=== PATIENT | female | born 1970 | race Caucasian/White ===

== ENCOUNTER 2024-03-26 22:39 | Emergency (ER) | payer OTHER, SELFPAY ==
[2024-03-26 23:05] VITALS: BP 160/100
[2024-03-26 23:18] LABS: Urine Albumin Negative (Neg - Trace); Urine Bilirubin Negative (Negative); Urine Character Clear (Clear); Urine Color Straw; Urine Glucose Negative (Negative); Urine Ketone Negative (Negative); Urine Leukocyte Trace (Negative); Urine Nitrite Negative (Negative); Urine Occult Blood Negative (Negative); Urine Urobilinogen Negative (Neg - 1+)
[2024-03-26 23:19] LABS: % Basophils 0.3 % (0-2); % Eosinophils 0.6 % (0-6); % Immature Granulocytes 0.5 % (0-0.5); % Lymphocytes 17.7 % (20.5-51.1); % Monocytes 6.5 % (1.7-9.3); % Neutrophils 74.4 % (42.2-75.2); Absolute Eosinophils 0.1 10^3/uL (0-0.7); Absolute Lymphocytes 1.5 10^3/uL (1.2-3.4); Absolute Monocytes 0.6 10^3/uL (0.1-0.6); Absolute Neutrophils 6.5 10^3/uL (1.4-6.5); Hematocrit 35.4 % (37.0-47.0); Hemoglobin 12.7 g/dL (12.0-16.0); Mean Corp Hgb Conc. 35.9 g/dL (33.0-37.0); Mean Corpuscular Hgb 30.8 pg (27.0-31.0); Mean Corpuscular Volume 85.9 fL (81.0-99.0); Mean Platelet Volume 10.4 fL (7.4-10.4); Nucleated Red Blood Cells % 0 %; Platelet Count 269 10^3/uL (130-400); Red Blood Cell Count 4.12 10^6/uL (4.20-5.40); Red Cell Dist. Width 12.5 % (11.5-14.5); White Blood Cell Count 8.7 10^3/uL (4.8-10.8)
[2024-03-26 23:31] LABS: Urine Red Blood Cell None Seen /HPF (0-2); Urine Squamous Cell 0-2 /LPF (Few); Urine White Cell 0-2 /HPF (0-5)
[2024-03-26 23:35] VITALS: BMI 27.1
[2024-03-26 23:39] VITALS: BP 145/92
[2024-03-26 23:43] LABS: ALT (SGPT) 20 U/L (0-35); AST (SGOT) 23 U/L (14-36); Albumin 4.6 g/dl (3.5-5.0); Alkaline Phosphatase 76 U/L (38-126); Blood Urea Nitrogen 14 mg/dl (7-17); Calcium 9.9 mg/dl (8.4-10.2); Carbon Dioxide 23 mmol/L (22-30); Chloride 105 mmol/L (98-107); Estimated Creatinine Clearance 82 ml/min; Glucose 113 mg/dl (70-99); Potassium 3.7 mmol/L (3.5-5.1); Sodium 142 mmol/L (135-145); Total Bilirubin 0.4 mg/dl (0.2-1.3); Total Protein 7.3 g/dl (6.3-8.2); eGFR > 60.00
[2024-03-27] VITALS: BP 162/97
--- NOTE | 2024-03-27 00:12 | ED.GENMED ---
History of Present Illness
General
Chief Complaint: Breathing Problem
Source: patient
Exam Limitations: none
Time Seen by Provider: 03/26/24 23:46
Nursing documentation reviewed up to this point in time: agreed with
History of Present Illness
History of Present Illness:
53-year-old female feels stressed hyperventilating short of breath getting a deep breath, some episodes of child similar episode with the onset of the COVID pandemic symptoms started few weeks ago coinciding with her special needs child being mated
to [employer] with numerous surgeries, she is not sleeping well, saw her PCP given some Ativan which helped also sounds like an SSRI which may not have helped, no fever chills no calf pain no hemoptysis, she is very stressed in the room, was tearful at
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
Past History
Past History
ED Past Medical History: Other (Renal calculus, UTI, occular migraine)
ED Past Surgical History: None
Social History
Tobacco: Former smoker
Alcohol: None
Drug: None
Personal:
Living: with family
Employment: Other
Family History
Family History: Hypertension and CAD; Negative Early CAD
Phy Exam
Physical Exam
Physical Exam:
Physical Exam
General: Anxious cooperative female
Neck: No jaundice no obvious
Heart: s1/s2 regular rate and rhythm, no murmur. equal radial pulses.
Lungs: no acute respiratory distress. clear bilaterally
Abdomen: Not tender
Neuro: alert and oriented. no focal neurological deficits
Skin: no rash
Psychiatric: Anxious cooperative interactive not hallucinating
Extremities: no edema. no calf tenderness.
Scores
Heart Failure Risk
Heart Failure Risk Score: Not Applicable
Course
Orders/Labs/Results
Orders:
Orders
03/26/24 22:54
ECG [Electrocardiogram (*1)] Urgent
Reason for Study: Shortness of Breath
Cardiology Consult: Unknown
EKG- Treatment ONCE
03/26/24 23:10
Complete Blood Count/With Diff Urgent
Comprehensive Metabolic Panel Urgent
Urinalysis Reflex To Culture Urgent
Date Specimen was Collected: 03/26/24
Time Specimen was Collected: 23:07
Urine Microscopic Reflex Cult Urgent
03/27/24 00:07
Lorazepam [Ativan] 1 mg PO NOW STA
CR Chest - 2 Views Urgent
Comment:
Reason For Exam: sob
03/27/24 00:13
Crisis Consult Routine
Reason for Consult: anxiety, outpt resources
03/27/24 00:17
Troponin I Urgent
Abnormal Lab Results
03/26/24
23:10
RBC 4.12 L 10^6/uL
(4.20-5.40)
Hct 35.4 L %
(37.0-47.0)
Lymphocytes % 17.7 L %
(20.5-51.1)
Glucose 113 H mg/dl
(70-99)
Leukocyte Esterase Rfl Trace A
(Negative)
03/26/24 23:10
03/26/24 23:10
Vital Signs
Initial and Last Documented VS:
Initial Vital Signs
Temp Pulse Resp Pulse Ox
98.3 F 85 26 100
03/26/24 22:43 03/26/24 22:43 03/26/24 22:43 03/26/24 22:43
Last Documented Vital Signs
Temp Pulse Resp BP Pulse Ox
98.3 F 75 19 162/97 98
03/26/24 22:43 03/27/24 00:00 03/27/24 00:00 03/27/24 00:00 03/27/24 00:00
MDM/Problems Addressed
Differential Diagnosis Includes:
Anxiety, grief, l doubt ACS or pneumothorax low clinical suspicion for PE
MDM/Problems Addressed:
Shortness of breath panic,
*Radiology
Radiology exam reviewed: preliminary read by ED provider
*Pulse Oximetry
Patient hypoxic: no
*EKG
Interpreted by ED Provider?: Yes
Interpretation: normal
Comparison EKG: no comparison EKG present
Heart Rate: 78
Rate: normal
Rhythm: sinus
QRS Pattern: normal QRS
Ischemia: no ischemia
*Motor Vehicles Supervisor Interpretation
Rate: normal
Interpretation: normal
Heart Rate: 78
Rhythm: sinus
*Critical Care Note
Total Time (30-74mins, 75-104mins- exclusive of procedures): Not Applicable
Update Note
Update Note:
Suspect panic disorder, will ask crisis to see her, refill her Ativan, encourage PCP follow-up, check troponin and chest x-ray for completeness sake
135 troponin chest x-ray noted patient feeling better
ED Attending Note
-
Portions of this chart may have been created with voice recognition software.� Occasional wrong word or��sound alike� substitutions may have occurred due to the inherent limitations of voice recognition software.
Discharge Plan
Departure
Patient Disposition: Home (Routine Discharge)
Date of Disposition: 03/27/24
Time of Disposition: 01:36
Patient with high blood pressure during this ER visit?: No
Condition: Good
Discharge Problem:
Anxiety
Instructions: Shortness of Breath (Dyspnea) (DC), Anxiety, Adult ED
Prescriptions:
New
lorazepam [Ativan] 1 mg tablet
1 mg PO BID PRN (Reason: anxiety) Qty: 14 0RF
lorazepam [Ativan] 0.5 mg tablet
0.5 mg PO HS PRN (Reason: anxiety) Qty: 20 0RF
No Action
oxycodone 5 mg tablet
5 mg PO TID PRN (Reason: Pain) Qty: 10 0RF
Referrals:
Bubba Shields, [Family Provider] - Next open appointment
Interventions
Interventions:
*Risk Screen - Suicide Last Done: 03/26/24 22:43
*General Assessment Last Done: 03/26/24 22:43
*Neglect/Abuse Screening Last Done: 03/26/24 22:43
ED- Fall Risk Assessment Last Done: 03/26/24 22:43
*ED COVID-19 Vaccine History Last Done: 03/26/24 22:43
ED- Cardiac Assessment Last Done: 03/26/24 23:35
ED- Pulmonary Assessment Last Done: 03/26/24 23:35
Discharge Date and Time
Print Language: FAROESE
[2024-03-27] MEDS: ATIVAN 1 MG PO (00:19)
[2024-03-27 00:57] LABS: Troponin I < 0.012 ng/ml
== END 2024-03-27 01:52 | disposition home or self-care (01) ==
LOC: EMR 22:39
PROVIDERS: Emergency Medicine; EMERGENCY PHYSICIAN Emergency Medicine; FAMILY PHYSICIAN Family Medicine
DX: F41.9 Anxiety disorder, unspecified (principal); Z82.49 Family history of ischemic heart disease and other diseases of the circulatory system; Z87.440 Personal history of urinary (tract) infections; Z87.442 Personal history of urinary calculi; Z87.891 Personal history of nicotine dependence
CPT/HCPCS: 99283; 71046; 80053; 81003; 81015; 84484; 85025; 93005

== ENCOUNTER 2024-05-20 12:03 | Emergency (ER) | payer OTHER, SELFPAY ==
[2024-05-20 12:07] VITALS: BP 175/98
[2024-05-20 12:43] LABS: % Basophils 0.4 % (0-2); % Eosinophils 0.3 % (0-6); % Immature Granulocytes 0.2 % (0-0.5); % Lymphocytes 12.5 % (20.5-51.1); % Monocytes 5.3 % (1.7-9.3); % Neutrophils 81.3 % (42.2-75.2); Absolute Lymphocytes 1.1 10^3/uL (1.2-3.4); Absolute Monocytes 0.5 10^3/uL (0.1-0.6); Absolute Neutrophils 7.2 10^3/uL (1.4-6.5); Hematocrit 38.9 % (37.0-47.0); Hemoglobin 13.3 g/dL (12.0-16.0); Mean Corp Hgb Conc. 34.2 g/dL (33.0-37.0); Mean Corpuscular Hgb 29.6 pg (27.0-31.0); Mean Corpuscular Volume 86.4 fL (81.0-99.0); Mean Platelet Volume 10.4 fL (7.4-10.4); Nucleated Red Blood Cells % 0 %; Platelet Count 295 10^3/uL (130-400); Red Cell Dist. Width 12.5 % (11.5-14.5); White Blood Cell Count 8.9 10^3/uL (4.8-10.8)
[2024-05-20 12:52] LABS: ALT (SGPT) 16 U/L (0-35); AST (SGOT) 20 U/L (14-36); Albumin 4.5 g/dl (3.5-5.0); Alkaline Phosphatase 78 U/L (38-126); Blood Urea Nitrogen 14 mg/dl (7-17); Calcium 9.6 mg/dl (8.4-10.2); Carbon Dioxide 25 mmol/L (22-30); Chloride 103 mmol/L (98-107); Glucose 134 mg/dl (70-99); Potassium 4.5 mmol/L (3.5-5.1); Sodium 137 mmol/L (135-145); Total Bilirubin 0.5 mg/dl (0.2-1.3); Total Protein 7.3 g/dl (6.3-8.2); eGFR > 60.00
[2024-05-20 13:03] LABS: Troponin I < 0.012 ng/ml
--- NOTE | 2024-05-20 16:08 | ED.GENMED ---
History of Present Illness
General
Chief Complaint: Breathing Problem
Source: patient
Exam Limitations: none
Time Seen by Provider: 05/20/24 15:57
Nursing documentation reviewed up to this point in time: agreed with
History of Present Illness
History of Present Illness:
Patient to ED with complaint of chest pain and tightness. Symptoms started approx 2 weeks ago. Today reports worsening paiin with deep breathing. Pain does not radiate. No alleviating factors. Denies n/v/diaphoresis. Brought to ED by spouse for
eval.
Past History
Past History
ED Past Medical History: Other (Renal calculus, UTI, occular migraine)
ED Past Surgical History: None
Social History
Tobacco: Former smoker
Alcohol: None
Drug: None
Personal:
Living: with family
Employment: Other
Family History
Family History: Hypertension and CAD; Negative Early CAD
Review of Systems
Review of Systems
Allergies reviewed?: Yes
All Other Systems: ROS reviewed and negative except as documented in HPI and ROS
Constitutional: Reports no symptoms
EENT: Reports no symptoms
Respiratory: Reports cough and trouble breathing
Cardiac: Reports chest pain
ABD/GI: Reports no symptoms
: Reports no symptoms
Musculoskeletal: Reports no symptoms
Skin: Reports no symptoms
Neurological: Reports no symptoms
Psychiatric: Reports no symptoms
Phy Exam
General Physical Exam
General Presentation: well appearing and mild distress
General age: appears stated age
General Skin: warm and dry
General Habitus: normal
General Mental: alert
Cardiovascular Exam
Cardiovascular Exam: regular rate/rhythm and no edema
Pulmonary Exam
Pulmonary Exam: lungs clear and no respiratory distress
Gastrointestinal Exam
Gastrointestinal Exam: non tender and soft
Musculoskeletal Exam
Musculoskeletal Exam: full ROM and neuro vasc intact
Skin Exam
Skin Exam: normal color, warm/dry and no rash
Psychiatric Exam
Psychiatric Exam: anxious
Scores
Heart Failure Risk
Heart Failure Risk Score: Not Applicable
Course
Orders/Labs/Results
Orders:
Orders
05/20/24 12:04
EKG [Electrocardiogram (*1)] Urgent
Reason for Study: Chest Pain
EKG- Treatment ONCE
05/20/24 12:23
Complete Blood Count/With Diff Urgent
Comprehensive Metabolic Panel Urgent
Troponin I Urgent
05/20/24 16:07
CR Chest - 2 Views Urgent
Comment:
Reason For Exam: chest pain, SOB
05/20/24 16:11
D-Dimer Urgent
Troponin I Urgent
05/20/24 16:34
Acetaminophen [Tylenol] 1,000 mg PO NOW STA
05/20/24 16:55
Pantoprazole [Protonix] 40 mg PO NOW STA
Abnormal Lab Results
05/20/24
12:23
Absolute Neuts (auto) 7.2 H 10^3/uL
(1.4-6.5)
Absolute Lymphs (auto) 1.1 L 10^3/uL
(1.2-3.4)
Neutrophils % 81.3 H %
(42.2-75.2)
Lymphocytes % 12.5 L %
(20.5-51.1)
Glucose 134 H mg/dl
(70-99)
05/20/24 12:23
05/20/24 12:23
Vital Signs
Initial and Last Documented VS:
Initial Vital Signs
Temp Pulse Resp BP Pulse Ox
98.2 F 87 16 175/98 98
05/20/24 12:07 05/20/24 12:07 05/20/24 12:07 05/20/24 12:07 05/20/24 12:07
Last Documented Vital Signs
Temp Pulse Resp BP Pulse Ox
98.2 F 71 13 144/98 97
05/20/24 12:07 05/20/24 16:45 05/20/24 16:45 05/20/24 16:09 05/20/24 16:45
*Radiology
Radiology exam reviewed: radiology read reviewed
*Pulse Oximetry
Patient hypoxic: no
*Critical Care Note
Total Time (30-74mins, 75-104mins- exclusive of procedures): Not Applicable
Update Note
Update Note:
Patient to ED wti complaint of chest tightness x 2 weeks. Reports sensation of lump in throat. Labs reviewed. Troponin neg x 2, DDimer normal. Doubtful for ACS. Possibly reflux induced? Will do trial of protonix She is discharged home and will
folllow up withPCP. Given number for cardiology at her request..
ED Attending Note
-
Portions of this chart may have been created with voice recognition software.� Occasional wrong word or��sound alike� substitutions may have occurred due to the inherent limitations of voice recognition software.
Discharge Plan
Departure
Patient Disposition: Home (Routine Discharge)
Date of Disposition: 05/20/24
Time of Disposition: 16:56
Patient with high blood pressure during this ER visit?: No
Condition: Good
Covid-19: Not Applicable
Discharge Problem:
Chest pain
Instructions: Acid reflux and GERD in adults, Chest Pain PCP Follow Up
Prescriptions:
New
pantoprazole [Protonix] 40 mg tablet,delayed release (DR/EC)
40 mg PO DAILY Qty: 14 0RF
No Action
oxycodone 5 mg tablet
5 mg PO TID PRN (Reason: Pain) Qty: 10 0RF
lorazepam [Ativan] 0.5 mg tablet
0.5 mg PO HS PRN (Reason: anxiety) Qty: 20 0RF
lorazepam [Ativan] 1 mg tablet
1 mg PO BID PRN (Reason: anxiety) Qty: 14 0RF
Referrals:
Willie Goodman MD [Active] -
Bubba Shields DO [Family Provider] - Tomorrow
Activity Restrictions/Additional Instructions:
Return to the emergency department immediately for any changes in/worsening of your symptoms.
Interventions
Interventions:
*Risk Screen - Suicide Last Done: 05/20/24 12:07
*General Assessment Last Done: 05/20/24 16:00
*Neglect/Abuse Screening Last Done: 05/20/24 12:07
ED- Fall Risk Assessment Last Done: 05/20/24 16:00
*ED COVID-19 Vaccine History Last Done: 05/20/24 16:00
ED- Cardiac Assessment Last Done: 05/20/24 16:00
ED- Pulmonary Assessment Last Done: 05/20/24 16:00
Discharge Date and Time
Print Language: PALAUAN
[2024-05-20 16:09] VITALS: BP 144/98
[2024-05-20 16:10] VITALS: BMI 25.1
[2024-05-20 16:36] LABS: D-Dimer 0.28 ug/mlFEU (0.00-0.50)
[2024-05-20] MEDS: TYLENOL 1000 MG PO (16:36)
[2024-05-20 16:49] LABS: Troponin I < 0.012 ng/ml
[2024-05-20 17:00] VITALS: BP 132/85
[2024-05-20] MEDS: PROTONIX 40 MG PO (17:03)
== END 2024-05-20 17:24 | disposition home or self-care (01) ==
LOC: EMR 12:03
PROVIDERS: Emergency Medicine; Nurse Practitioner; EMERGENCY PHYSICIAN Emergency Medicine; FAMILY PHYSICIAN Family Medicine
DX: R07.89 Other chest pain (principal); Z82.49 Family history of ischemic heart disease and other diseases of the circulatory system; Z87.440 Personal history of urinary (tract) infections; Z87.442 Personal history of urinary calculi; Z87.891 Personal history of nicotine dependence
CPT/HCPCS: 99283; 80053; 84484; 85025; 85379; 93005

== ENCOUNTER 2025-01-14 18:39 | Emergency (ER) | payer OTHER, SELFPAY ==
[2025-01-14 18:48] VITALS: BP 177/95
[2025-01-14 19:06] LABS: Hematocrit 36.7 % (37.0-47.0); Hemoglobin 12.8 g/dL (12.0-16.0); Mean Corp Hgb Conc. 34.9 g/dL (33.0-37.0); Mean Corpuscular Volume 86.8 fL (81.0-99.0); Nucleated Red Blood Cells % 0 %; Platelet Count 297 10^3/uL (130-400); Red Cell Dist. Width 12.3 % (11.5-14.5)
[2025-01-14 19:07] LABS: Urine Character Clear (Clear)
[2025-01-14 19:27] LABS: ALT (SGPT) 15 U/L (0-35); AST (SGOT) 18 U/L (14-36); Albumin 4.7 g/dl (3.5-5.0); Alkaline Phosphatase 60 U/L (38-126); Blood Urea Nitrogen 14 mg/dl (7-17); Calcium 10.0 mg/dl (8.4-10.2); Carbon Dioxide 27 mmol/L (22-30); Chloride 104 mmol/L (98-107); Glucose 90 mg/dl (70-99); Potassium 3.9 mmol/L (3.5-5.1); Sodium 139 mmol/L (135-145); Total Protein 7.8 g/dl (6.3-8.2); eGFR > 60.00
--- NOTE | 2025-01-14 22:28 | ED.GENMED ---
History of Present Illness
General
Chief Complaint: Headache
Source: patient and spouse
Exam Limitations: none
Time Seen by Provider: 01/14/25 22:03
Nursing documentation reviewed up to this point in time: agreed with
History of Present Illness
History of Present Illness:
The patient is a 54-year-old female presenting with a headache and nausea persisting for five days. The headache feels similar to her typical migraines but has lasted longer. She denies fever but reports some frontal head pressure and mild eye
discomfort a few days ago. Her headache is primarily in the front of the head, involving both sides. There is no neck pain, though she usually experiences some neck discomfort on a regular, chronic basis. She complains of some urinary frequency
throughout the day today after increasing water intake today but denies urinary tract infection symptoms. She experienced nausea and two days of pronounced dizziness, rendering her unable to get out of bed. The dizziness worsens with head
movements. She denies ear ringing or buzzing and reports intermittent improvement and recurrence of symptoms, notably waking with nausea.
For headache relief, she uses acetaminophen and ibuprofen, with inconsistent efficacy. The patient has no history of specific migraine medications. 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
at a different ED and underwent unremarkable CT of the head. Headaches occur approximately once a week or more but varies in frequency. She admits that she has not followed up with PCP for frequent headaches nor previous neurology evaluation. She
is postmenopausal.
The headaches and nausea are attributed to migraines, potentially weather-related. Insufficient sleep may exacerbate symptoms, partly due to caregiving responsibilities for a special needs daughter.
She takes no medicines on a daily basis.
Past History
Past History
ED Past Medical History: Other (Renal calculus, UTI, occular migraine)
ED Past Surgical History: None
Social History
Tobacco: Former smoker
Alcohol: None
Drug: None
Personal:
Living: with family
Employment: Other
Family History
Family History: Hypertension and CAD; Negative Early CAD
Phy Exam
Physical Exam
Physical Exam:
General: 54-year-old woman appears her stated age, bright and alert, pleasant, appears in no acute distress. Accompanied by her .
Skin: Warm, dry. Normal color. No rash.
Head: Normocephalic, atraumatic.
Neck: Supple, nontender, no adenopathy nor meningismus, trachea midline.
Eye Ears, Nose, and Throat: Oral mucosa moist. TMs are clear bilaterally. Nares are patent with mildly boggy pale blue turbinates without rhinorrhea. Pupils are equal and reactive to light, extraocular muscles intact. Discs are sharp bilaterally.
Cardiovascular: Normal peripheral perfusion, no edema.
Respiratory: Respirations are non-labored.
Gastrointestinal: Abdomen nondistended.
Back: Normal range of motion, normal alignment.
Musculoskeletal: Normal range of motion, normal strength.
Neurological: Alert and oriented to person, place, time, and situation, no focal neurological deficit observed. Foss and steady gait.
Psychiatric: Cooperative, appropriate mood & affect.
Course
Orders/Labs/Results
Orders:
Orders
01/14/25 18:51
EKG [Electrocardiogram (*1)] Urgent
Reason for Study: Vertigo / Dizzy
EKG- Treatment ONCE
01/14/25 18:55
Urinalysis Reflex To Culture Urgent
Date Specimen was Collected: 01/14/25
Time Specimen was Collected: 18:51
01/14/25 18:59
Complete Blood Count/With Diff Urgent
Comprehensive Metabolic Panel Urgent
01/14/25 22:23
CT Head W/o Iv Contrast Urgent
Comment:
Reason For Exam: gen frontal h/a x 5 days
0.9% Sodium Chloride 1000 ml [Nss] 1,000 ml IV BOLUS
Diphenhydramine [Benadryl] 25 mg IV NOW STA
Prochlorperazine [Compazine] 10 mg IV NOW STA
01/14/25 23:53
Ketorolac [Toradol] 30 mg IV NOW STA
Abnormal Lab Results
01/14/25
18:59
Hct 36.7 L %
(37.0-47.0)
01/14/25 18:59
01/14/25 18:59
Vital Signs
Initial and Last Documented VS:
Initial Vital Signs
Temp Pulse Resp BP Pulse Ox
98.5 F 73 16 177/95 100
01/14/25 18:48 01/14/25 18:48 01/14/25 18:48 01/14/25 18:48 01/14/25 18:48
Last Documented Vital Signs
Temp Pulse Resp BP Pulse Ox
98.5 F 55 16 129/73 99
01/14/25 18:48 01/15/25 00:30 01/15/25 00:30 01/15/25 00:30 01/15/25 00:30
MDM/Problems Addressed
Differential Diagnosis Includes:
The Differential Diagnosis includes, in no particular order and is not limited to:
- Migraine
- Tension headache
- Sinusitis
- Meningitis
- Vestibular neuritis
- Dehydration-induced headache
- Upper respiratory infection
- Giant cell arteritis
- Temporal arteritis
- Intracranial hemorrhage
MDM/Problems Addressed:
- Acute: Persistent headache, nausea, dizziness.
- Thus far labs are unremarkable as is urinalysis.
- EKG is overall unremarkable and unchanged from previous May 2024.
PLAN:
- Conduct a computed tomography scan of the head to rule out other causes.
- Initiate IV fluids.
- Administer IV prochlorperazine for headache and nausea management.
- Administer IV diphenhydramine to counteract potential restlessness caused by prochlorperazine.
Chronic conditions affecting care:
History of migraine headaches, somewhat frequent occurring at least once a week.
Chronic conditions affecting care: Other (Migraine headaches)
*Radiology
Radiology exam reviewed: radiology read reviewed (CT of the head is unremarkable)
*Pulse Oximetry
SaO2: 100
Oxygen Mode of Delivery: Room air
Patient hypoxic: no
*EKG
Interpreted by ED Provider?: Yes
Interpretation: normal
Comparison EKG: no changes (Unchanged from previous May 2024)
Rate: normal
Rhythm: sinus
Watkins: normal axis
Interval: normal interval
QRS Pattern: normal QRS
Ischemia: non-specific ST changes
*Critical Care Note
Total Time (30-74mins, 75-104mins- exclusive of procedures): Not Applicable
Patient Management
Social determinants of health affecting care: Other ( The patient has a special needs daughter requiring full-time care, impacting her sleep and contributing to stress.)
Update Note
Update Note:
00:45
Patient resting comfortably. Headache and nausea have resolved.
CT of the head is unremarkable.
Will discharge to home with recommendation for follow-up with her PCP for further evaluation of somewhat frequent, weekly headaches.
ED Attending Note
-
Portions of this chart may have been created with voice recognition software.� Occasional wrong word or��sound alike� substitutions may have occurred due to the inherent limitations of voice recognition software.
Discharge Plan
Departure
Patient Disposition: Home (Routine Discharge)
Date of Disposition: 01/15/25
Time of Disposition: 00:47
Patient with high blood pressure during this ER visit?: No
Condition: Good
Discharge Problem:
Acute exacerbation of migraine headache
Instructions: Migraines (DC)
Prescriptions:
No Action
oxycodone 5 mg tablet
5 mg PO TID PRN (Reason: Pain) Qty: 10 0RF
lorazepam [Ativan] 0.5 mg tablet
0.5 mg PO HS PRN (Reason: anxiety) Qty: 20 0RF
lorazepam [Ativan] 1 mg tablet
1 mg PO BID PRN (Reason: anxiety) Qty: 14 0RF
pantoprazole [Protonix] 40 mg tablet,delayed release (DR/EC)
40 mg PO DAILY Qty: 14 0RF
Referrals:
Bubba Shields DO [Family Provider, Family Practice] - Call in 1-3 days for appt
Interventions
Interventions:
*Risk Screen - Suicide Last Done: 01/14/25 18:48
*General Assessment Last Done: 01/14/25 18:48
*Neglect/Abuse Screening Last Done: 01/14/25 18:48
ED- Neurological Assessment Last Done: 01/14/25 22:33
Discharge Date and Time
Print Language: DOMINICAN
[2025-01-14] MEDS: COMPAZINE 10 MG IV (23:16)
[2025-01-14] MEDS: BENADRYL 25 MG IV (23:16)
[2025-01-14] MEDS: NSS 1000 IV (23:17)
[2025-01-15] MEDS: TORADOL 30 MG IV (00:02)
[2025-01-15 00:30] VITALS: BP 129/73
== END 2025-01-15 00:57 | disposition home or self-care (01) ==
LOC: EMR 18:39
PROVIDERS: Emergency Medicine; EMERGENCY PHYSICIAN Emergency Medicine; FAMILY PHYSICIAN Family Medicine
DX: G43.909 Migraine, unspecified, not intractable, without status migrainosus (principal); Z87.891 Personal history of nicotine dependence; Z63.6 Dependent relative needing care at home
CPT/HCPCS: 99285; 96374; 96375 ×2; 96361; 70450; 80053; 81003; 85025; 93005

== ENCOUNTER 2025-01-29 16:44 | Emergency (ER) | payer OTHER, SELFPAY ==
[2025-01-29 16:45] VITALS: BP 148/112
[2025-01-29] MEDS: NSS 1000 IV (18:51)
[2025-01-29] MEDS: TORADOL 30 MG IV (18:56)
[2025-01-29 19:00] VITALS: BP 160/107
[2025-01-29] MEDS: BENADRYL 25 MG IV (19:02)
[2025-01-29] MEDS: COMPAZINE 10 MG IV (19:04)
[2025-01-29 19:07] VITALS: BMI 25.9
[2025-01-29 19:39] VITALS: BP 130/73
--- NOTE | 2025-01-29 23:29 | ED.GENMED ---
History of Present Illness
General
Chief Complaint: Headache
Source: patient
Exam Limitations: none
Time Seen by Provider: 01/29/25 17:56
Nursing documentation reviewed up to this point in time: agreed with
History of Present Illness
History of Present Illness:
Patient to ED with complaint of migraine headahce. States she was not feeling well last PM, +nausea. Migraine similar to prior events. To ED via EMS for eval. ON arrival she is awake and alert.
Past History
Past History
ED Past Medical History: Other (Renal calculus, UTI, occular migraine)
ED Past Surgical History: None
Social History
Tobacco: Former smoker
Alcohol: None
Drug: None
Personal:
Living: with family
Employment: Other
Family History
Family History: Hypertension and CAD; Negative Early CAD
Review of Systems
Review of Systems
Allergies reviewed?: Yes
All Other Systems: ROS reviewed and negative except as documented in HPI and ROS
Constitutional: Reports no symptoms
EENT: Reports no symptoms
Respiratory: Reports no symptoms
Cardiac: Reports no symptoms
ABD/GI: Reports nausea
: Reports no symptoms
Musculoskeletal: Reports no symptoms
Skin: Reports no symptoms
Neurological: Reports headache
Psychiatric: Reports no symptoms
Phy Exam
General Physical Exam
General Presentation: moderate distress
General age: appears stated age
General Skin: warm and dry
General Habitus: normal
General Mental: alert
General Hydration: appears well hydrated
Neurological Exam
Neurological Exam: alert, oriented x3, no motor deficits, speech normal and normal gait
Musculoskeletal Exam
Musculoskeletal Exam: full ROM
Skin Exam
Skin Exam: normal color, warm/dry and no rash
Psychiatric Exam
Psychiatric Exam: normal mood/affect
Course
Orders/Labs/Results
Orders:
Orders
01/29/25 18:42
Diphenhydramine [Benadryl] 25 mg IV NOW STA
Ketorolac [Toradol] 30 mg IV NOW STA
Prochlorperazine [Compazine] 10 mg IV NOW STA
01/29/25 18:45
0.9% Sodium Chloride 1000 ml [Nss] 1,000 ml IV BOLUS
Vital Signs
Initial and Last Documented VS:
Initial Vital Signs
Temp Pulse Resp BP Pulse Ox
98.4 F 76 16 148/112 99
01/29/25 16:45 01/29/25 16:45 01/29/25 16:45 01/29/25 16:45 01/29/25 16:45
Last Documented Vital Signs
Temp Pulse Resp BP Pulse Ox
98.4 F 65 18 130/73 98
01/29/25 16:45 01/29/25 19:39 01/29/25 19:39 01/29/25 19:39 01/29/25 23:32
*Radiology
Radiology exam reviewed: radiology read reviewed
*Pulse Oximetry
SaO2: 98
Oxygen Mode of Delivery: Room air
Patient hypoxic: no
*Critical Care Note
Total Time (30-74mins, 75-104mins- exclusive of procedures): Not Applicable
Update Note
Update Note:
Patient to ED wtih complaint of nausea and headache. SHe has a history of migraines, pain is similar. VSS, she remains afebrile. Given IVF, migraine cocktail in ED with significant improvement. Will discharge home and she will follow upw ith PCP
on Friday. Given instructions on s/s to return to ED and she is agreeable to plan
ED Attending Note
-
Portions of this chart may have been created with voice recognition software.� Occasional wrong word or��sound alike� substitutions may have occurred due to the inherent limitations of voice recognition software.
Discharge Plan
Departure
Patient Disposition: Home (Routine Discharge)
Date of Disposition: 01/29/25
Time of Disposition: 21:04
Patient with high blood pressure during this ER visit?: No
Condition: Good
Covid-19: Not Applicable
Discharge Problem:
Migraine
Instructions: Migraines (DC)
Prescriptions:
No Action
oxycodone 5 mg tablet
5 mg PO TID PRN (Reason: Pain) Qty: 10 0RF
lorazepam [Ativan] 0.5 mg tablet
0.5 mg PO HS PRN (Reason: anxiety) Qty: 20 0RF
lorazepam [Ativan] 1 mg tablet
1 mg PO BID PRN (Reason: anxiety) Qty: 14 0RF
pantoprazole [Protonix] 40 mg tablet,delayed release (DR/EC)
40 mg PO DAILY Qty: 14 0RF
Referrals:
Bubba Shields DO [Family Provider, Family Practice] - Follow up in 2-3 days
Activity Restrictions/Additional Instructions:
Return to the emergency department immediately for any changes in/worsening of your symptoms
Interventions
Interventions:
*Risk Screen - Suicide Last Done: 01/29/25 19:14
*General Assessment Last Done: 01/29/25 19:14
*Neglect/Abuse Screening Last Done: 01/29/25 19:17
*ED- Fall Risk Assessment Last Done: 01/29/25 19:14
*ED COVID-19 Vaccine History Last Done: 01/29/25 19:14
*Nursing Disposition Last Done: 01/29/25 21:17
ED- Neurological Assessment Last Done: 01/29/25 19:14
Discharge Date and Time
Discharge Date/Time: 01/29/25 21:18
Print Language: NAMIBIAN
== END 2025-01-29 21:18 | disposition home or self-care (01) ==
LOC: EMR 16:44
PROVIDERS: EMERGENCY PHYSICIAN Emergency Medicine; FAMILY PHYSICIAN Family Medicine
DX: G43.909 Migraine, unspecified, not intractable, without status migrainosus (principal); Z87.891 Personal history of nicotine dependence
CPT/HCPCS: 99284; 96374; 96375 ×2; 96361 ×2